=== PATIENT | male | born 1980 | race Caucasian/White ===

== ENCOUNTER 2019-03-06 15:20 | Emergency (ER) | payer BC, OTHER ==
[2019-03-06] MEDS ORDERED: Sodium Chloride 0.9% 10 ML Syringe FLUSH PRN (15:36)
[2019-03-06] MEDS ORDERED: Sodium Chloride 0.9% 1,000 ML IV ONE ×2 (15:39→16:41)
[2019-03-06] MEDS ORDERED: Ondansetron 4 MG/2 ML SDV IVPUSH ONE (15:39)
[2019-03-06] MEDS ORDERED: Iopamidol 612 MG/ML 100 ML Bottle IVPUSH ONE (15:47)
[2019-03-06] MEDS ORDERED: Piperacillin/Tazobactam 3.375 GM in Sodium Chloride 0.9% 100 ML IV ONE (15:59)
[2019-03-06 16:13] LABS: CHLORIDE,CL 105 mmol/L (98-107); SODIUM,NA 143 mmol/L (136-145)
[2019-03-06 16:17] LABS: ANION GAP 23.7 mmol/L (10-20)
--- NOTE | 2019-03-06 16:39 | CT ---
[id number] CT/CT Abdomen Pelvis W IV EXAM: ABDOMEN AND PELVIS CT WITH CONTRAST INDICATION: LOWER ABDOMINAL PAIN. COMPARISON: None. DISCUSSION: There is mild to moderate diffuse small bowel wall thickening, diffuse small bowel mesenteric edema and mucosal hyperenhancement consistent with enteritis. Milder scattered changes are suggested in the colon which is nondilated and appears fluid-filled. Small to moderate free fluid in the abdomen and pelvis. No pneumatosis, bowel dilation, free air or abscess is identified. The IVC is relatively flattened which can be seen in the context of hypovolemia. Possible fatty infiltration of the liver. Small hiatus hernia. The gallbladder, spleen, pancreas, adrenal glands, kidneys and appendix are normal in appearance. No lymphadenopathy. Mild to moderate degenerative disc disease at L5-S1. The osseous structures are otherwise unremarkable. IMPRESSION: 1. Moderate diffuse enteritis and possible mild scattered colitis. There is associated mesenteric edema and small to moderate free fluid. Zachery Christina MD 03/06/19 [id number] Thank you for allowing us to participate in the care of your patient.
[2019-03-06] MEDS ORDERED: fentaNYL 100 MCG/2 ML SDV IVPUSH ONE (16:46)
--- NOTE | 2019-03-06 16:58 | EDM.PDOC ---
ED HPI GENERAL MEDICAL PROBLEM - General Chief Complaint: Fever Stated Complaint: STOMACH PAIN, CHILLS Time Seen by Provider: 03/06/19 15:25 Source of Information: Reports: Patient History Limitations: Reports: No Limitations - History of Present Illness INITIAL COMMENTS - FREE TEXT/NARRATIVE: Pt. presents to ER with complaints of acute onset severe abdominal pain that started this afternoon. 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 He denies any abdominal trauma. Pt. states that he has had several episodes of severe diarrhea and vomiting. He was extremely diaphoretic at onset and continued to be on initial assessment in ER. He denies any chest pain or shortness of breath. He states that he is chilled. He has not been febrile. He denies any recent ill contacts. Pt. states that the pain is diffuse but localizes in the lower abdomen. He states that he has had issues with abdominal pain and hematochezia in the past but states that he has not been evaluated for this. Pt. denies any incident today. 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 Onset: Today Location: Reports: Abdomen Quality: Reports: Ache, Sharp Associated Symptoms: Reports: Diaphoresis, Fever/Chills, Malaise, Nausea/ Vomiting, Weakness Lower Abdominal Pain Score (Numeric/FACES): 8 - Related Data Allergies Allergy/AdvReac Type Severity Reaction Status Date / Time No Known Allergies Allergy Verified 03/06/19 15:35 Home Meds: Home Meds FLUoxetine HCl [Fluoxetine HCl] 40 mg PO DAILY 03/06/19 [History] Lisinopril [Zestril] 10 mg PO DAILY 03/06/19 [History] Metoprolol Succinate [Toprol XL 50mg] 50 mg PO DAILY 03/06/19 [History] clonazePAM [Klonopin] 1 mg PO DAILY 03/06/19 [History] Past Medical History Cardiovascular History: Reports: Hypertension Psychiatric History: Reports: Addiction, Anxiety, Depression Social & Family History - Tobacco Use Smoking Status *Q: Current Every Day Smoker Years of Tobacco use: 10 Packs/Tins Daily: 0.5 - Recreational Drug Use Recreational Drug Use: Yes Drug Use in Last 12 Months: No Recreational Drug Type: Reports: Other (see below) Other Recreational Drug Type: Opioid - on Suboxone treatments ED ROS GENERAL - Review of Systems Review Of Systems: See Below Constitutional: Reports: Fever, Chills, Malaise, Weakness, Fatigue HEENT: Reports: No Symptoms Respiratory: Reports: No Symptoms Cardiovascular: Reports: No Symptoms Endocrine: Reports: No Symptoms GI/Abdominal: Reports: Abdominal Pain, Diarrhea, Nausea, Vomiting : Reports: No Symptoms Musculoskeletal: Reports: No Symptoms Skin: Reports: No Symptoms Neurological: Reports: No Symptoms Psychiatric: Reports: No Symptoms Hematologic/Lymphatic: Reports: No Symptoms Immunologic: Reports: No Symptoms ED EXAM, GENERAL - Physical Exam Exam: See Below Exam Limited By: No Limitations General Appearance: Alert, Anxious, Lethargic, Moderate Distress Throat/Mouth: Normal Inspection, Normal Lips, Normal Teeth, Normal Gums, Normal Oropharynx, Normal Voice, No Airway Compromise Respiratory/Chest: No Respiratory Distress, Lungs Clear, Normal Breath Sounds, No Accessory Muscle Use, Chest Non-Tender Cardiovascular: Normal Peripheral Pulses, Regular Rate, Rhythm, No Edema, No Gallop, No JVD, No Murmur, No Rub GI/Abdominal: Guarding, Rigid, Tender (Male) Exam: Deferred Rectal (Males) Exam: Deferred Back Exam: Normal Inspection, Full Range of Motion Extremities: Normal Inspection, Normal Range of Motion, Non-Tender, No Pedal Edema, Normal Capillary Refill Neurological: Alert, Oriented, CN II-XII Intact, Normal Cognition, Normal Gait, Normal Reflexes, No Motor/Sensory Deficits Psychiatric: Normal Affect, Normal Mood Skin Exam: Cool, Diaphoretic, Pallor Lymphatic: No Adenopathy EKG INTERPRETATION Rhythm: NSR Corbin: Normal P-Wave: Present QRS: Normal ST-T: Normal QT: Normal Course - Vital Signs Last Recorded V/S: Last Vital Signs Temp 35 C L 03/06/19 16:30 Pulse 59 L 03/06/19 16:59 Resp 18 03/06/19 16:59 BP 84/57 L 03/06/19 16:59 Pulse Ox 98 03/06/19 16:59 - Orders/Labs/Meds Orders: Active Orders 24 hr Category Date Time Status EKG 12 Lead [EKG Documentation Completion] [RC] STAT Care 03/06/19 16:20 Active CULTURE BLOOD [BC] Stat Lab 03/06/19 15:40 Received CULTURE BLOOD [BC] Stat Lab 03/06/19 15:40 Received Norepinephrine [Levophed] 4 mg Med 03/06/19 17:00 Active Dextrose 5% in Water 246 ml IV TITRATE Sodium Chloride 0.9% [Normal Saline] 1,000 ml Med 03/06/19 16:41 Active IV ONETIME Sodium Chloride 0.9% [Saline Flush] Med 03/06/19 15:36 Active 10 ml FLUSH ASDIRECTED PRN Blood Culture x2 Reflex Set [OM.PC] Stat Oth 03/06/19 15:40 Ordered Peripheral IV Insertion Adult [OM.PC] Routine Oth 03/06/19 15:36 Ordered Medication Orders Sodium Chloride (Normal Saline) 1,000 mls @ 1,000 mls/hr IV ONETIME ONE Stop: 03/06/19 17:40 Last Admin: 03/06/19 15:35 Dose: 1,000 mls/hr Norepinephrine Bitartrate 4 mg (/ Dextrose/Water) 250 mls @ 7.5 mls/hr IV TITRATE TERI; Protocol Last Admin: 03/06/19 16:40 Dose: 2 mcg/min, 7.5 mls/hr Sodium Chloride (Saline Flush) 10 ml FLUSH ASDIRECTED PRN PRN Reason: Keep Vein Open Labs: Laboratory Tests 03/06/19 03/06/19 03/06/19 Range/Units 15:40 15:40 15:40 WBC 21.1 H* (4.0-10.0) x10^3/uL RBC 7.98 H (4.5-6.0) x10^6/uL Hgb 24.0 H (14.0-18.0) g/dL Hct 64.8 H (40.0-52.0) % MCV 81.2 (78.0-93.0) fL MCH 30.1 (26.0-32.0) pg MCHC 37.0 H (32.0-36.0) g/dL RDW Coeff of Roney 15.3 H (10.0-15.0) % Plt Count 374 (130-400) x10^3/uL Add Manual Diff Yes Neutrophils % (Manual) 72 (50-80) % Band Neutrophils % 2 (0-6) % Lymphocytes % (Manual) 19 L (25-50) % Atypical Lymphs % 2 H (0) % Monocytes % (Manual) 4 (2-11) % Eosinophils % (Manual) 1 (0-4) % Platelet Estimate Adequate PT 12.9 H (10.0-12.8) SEC INR 1.1 L (2.0-3.5) Sodium 143 (136-145) mmol/L Potassium 3.7 (3.5-5.1) mmol/L Chloride 105 (98-107) mmol/L Carbon Dioxide 18 L (21-32) mmol/L Anion Gap 23.7 H (10-20) mmol/L BUN 21 H (7-18) mg/dL Creatinine 1.5 H (0.70-1.30) mg/dL Est Cr Clr Drug Dosing TNP Estimated GFR (MDRD) 52 Glucose 167 H (74-106) mg/dL Lactic Acid (0.4-2.0) mmol/L Calcium 10.7 H (8.5-10.1) mg/dL Corrected Calcium 9.82 (8.5-10.1) mg/dL Phosphorus 5.4 H (2.6-4.7) mg/dL Magnesium 2.0 (1.8-2.4) mg/dL Total Bilirubin 0.5 (0.2-1.0) mg/dL AST 22 (15-37) U/L ALT 27 (16-63) U/L Alkaline Phosphatase 128 H (46-116) U/L C-Reactive Protein 0.5 (<=0.9) mg/dL Total Protein 8.9 H (6.4-8.2) g/dL Albumin 5.1 H (3.4-5.0) g/dL Globulin 3.8 Albumin/Globulin Ratio 1.34 03/06/19 Range/Units 15:40 WBC (4.0-10.0) x10^3/uL RBC (4.5-6.0) x10^6/uL Hgb (14.0-18.0) g/dL Hct (40.0-52.0) % MCV (78.0-93.0) fL MCH (26.0-32.0) pg MCHC (32.0-36.0) g/dL RDW Coeff of Roney (10.0-15.0) % Plt Count (130-400) x10^3/uL Add Manual Diff Neutrophils % (Manual) (50-80) % Band Neutrophils % (0-6) % Lymphocytes % (Manual) (25-50) % Atypical Lymphs % (0) % Monocytes % (Manual) (2-11) % Eosinophils % (Manual) (0-4) % Platelet Estimate PT (10.0-12.8) SEC INR (2.0-3.5) Sodium (136-145) mmol/L Potassium (3.5-5.1) mmol/L Chloride (98-107) mmol/L Carbon Dioxide (21-32) mmol/L Anion Gap (10-20) mmol/L BUN (7-18) mg/dL Creatinine (0.70-1.30) mg/dL Est Cr Clr Drug Dosing Estimated GFR (MDRD) Glucose (74-106) mg/dL Lactic Acid 4.1 H* (0.4-2.0) mmol/L Calcium (8.5-10.1) mg/dL Corrected Calcium (8.5-10.1) mg/dL Phosphorus (2.6-4.7) mg/dL Magnesium (1.8-2.4) mg/dL Total Bilirubin (0.2-1.0) mg/dL AST (15-37) U/L ALT (16-63) U/L Alkaline Phosphatase (46-116) U/L C-Reactive Protein (<=0.9) mg/dL Total Protein (6.4-8.2) g/dL Albumin (3.4-5.0) g/dL Globulin Albumin/Globulin Ratio Meds: Medications Generic Name Dose Route Start Last Admin Trade Name Freq PRN Reason Stop Dose Admin Sodium Chloride 1,000 mls @ 1,000 mls/hr 03/06/19 16:41 03/06/19 15:35 Normal Saline IV 03/06/19 17:40 1,000 mls/hr ONETIME ONE Administration Norepinephrine Bitartrate 4 mg 250 mls @ 7.5 mls/hr 03/06/19 17:00 03/06/19 16:40 / Dextrose/Water IV 2 mcg/min TITRATE TERI 7.5 mls/hr Administration Protocol 2 MCG/MIN Sodium Chloride 10 ml 03/06/19 15:36 Saline Flush FLUSH ASDIRECTED PRN Keep Vein Open Discontinued Medications Generic Name Dose Route Start Last Admin Trade Name Freq PRN Reason Stop Dose Admin Fentanyl 50 mcg 03/06/19 16:46 03/06/19 16:51 Sublimaze IVPUSH 03/06/19 16:47 50 mcg ONETIME ONE Administration Sodium Chloride 1,000 mls @ 1,000 mls/hr 03/06/19 15:39 03/06/19 15:45 Normal Saline IV 03/06/19 16:38 1,000 mls/hr .BOLUS ONE Administration Piperacillin Sod/Tazobactam 100 mls @ 200 mls/hr 03/06/19 15:59 03/06/19 16: 05 Sod 3.375 gm/ Sodium Chloride IV 03/06/19 16:28 200 mls/hr STAT ONE Administration Iopamidol 100 ml 03/06/19 15:47 03/06/19 16:06 Isovue-300 (61%) IVPUSH 03/06/19 15:48 100 ml ONETIME ONE Administration Ondansetron HCl 4 mg 03/06/19 15:39 03/06/19 16:17 Zofran IVPUSH 03/06/19 15:40 4 mg ONETIME ONE Administration - Radiology Interpretation Free Text/Narrative:: Moderate diffues enteritis and colitis. There is small amount of free fluid. No obvious ruptured bowel or spleen. - Re-Assessments/Exams Free Text/Narrative Re-Assessment/Exam: 2 IVs were established. He was still hypotensive despite approx. 1.5 liters of fluid. Pt. started on Levophed. Currently on 6 mcg/min and titrating. Pt. was given zosyn 3.375gm IV. Pt. will be given IV fluids during transport. Levophed will be continued and titrated. I spoke with Dr. Bridges at [facility] in [place] who accepts patient in transfer. Departure - Departure Time of Disposition: 05:09 Disposition: DC/Tfer to Acute Hospital 02 Condition: Critical Clinical Impression: Sepsis associated hypotension, Colitis - Discharge Information Referrals: Sepideh Mckeon, [employer] [Primary Care Provider] - Forms: ED Department Discharge, Interfacility Transfer EMTALA - My Orders Last 24 Hours: My Active Orders 03/06/19 15:36 Sodium Chloride 0.9% [Saline Flush] 10 ml FLUSH ASDIRECTED PRN Peripheral IV Insertion Adult [OM.PC] Routine 03/06/19 15:40 CULTURE BLOOD [BC] Stat CULTURE BLOOD [BC] Stat Blood Culture x2 Reflex Set [OM.PC] Stat 03/06/19 16:20 EKG 12 Lead [EKG Documentation Completion] [RC] STAT 03/06/19 16:41 Sodium Chloride 0.9% [Normal Saline] 1,000 ml IV ONETIME 03/06/19 17:00 Norepinephrine [Levophed] 4 mg Dextrose 5% in Water 246 ml IV TITRATE - Assessment/Plan Last 24 Hours: My Active Orders 03/06/19 15:36 Sodium Chloride 0.9% [Saline Flush] 10 ml FLUSH ASDIRECTED PRN Peripheral IV Insertion Adult [OM.PC] Routine 03/06/19 15:40 CULTURE BLOOD [BC] Stat CULTURE BLOOD [BC] Stat Blood Culture x2 Reflex Set [.PC] Stat 03/06/19 16:20 EKG 12 Lead [EKG Documentation Completion] [RC] STAT 03/06/19 16:41 Sodium Chloride 0.9% [Normal Saline] 1,000 ml IV ONETIME 03/06/19 17:00 Norepinephrine [Levophed] 4 mg Dextrose 5% in Water 246 ml IV TITRATE Plan: Pt. will be evaluated in ER. He will be transported by [facility] ground ambulance. He can receive IV fentanyl for pain control. Titrate levophed to maintain systolic BP of 90.
[2019-03-06] MEDS ORDERED: Norepinephrine 4 MG in Dextrose 5% in Water 246 ML IV SCH ×2 (17:00)
== END 2019-03-06 17:20 | disposition short-term general hospital (02) ==
LOC: VM.ED 15:20
DX: A41.9 Sepsis, unspecified organism (principal); K52.9 Noninfective gastroenteritis and colitis, unspecified; I95.9 Hypotension, unspecified; Z79.899 Other long term (current) drug therapy; F17.210 Nicotine dependence, cigarettes, uncomplicated; F41.9 Anxiety disorder, unspecified; F32.9 Major depressive disorder, single episode, unspecified
CPT/HCPCS: 74177; 80053; 83605; 83735; 84100; 85025; 85610; 86140; 87040; 93005; 96365; 96367; 96375; 99291; 99292; J2405; J2543; J3010; J7030; J7050; J7060; Q9967

== ENCOUNTER 2019-05-18 23:10 | Emergency (ER) | payer MEDICAID, OTHER ==
[2019-05-18] MEDS ORDERED: SUMAtriptan 6 MG/0.5 ML SDV SUBCUT ONE (23:23)
--- NOTE | 2019-05-19 01:25 | EDM.PDOC ---
ED HPI GENERAL MEDICAL PROBLEM - General Chief Complaint: Headache Stated Complaint: Frontal headache Time Seen by Provider: 05/18/19 23:20 Source of Information: Reports: Patient History Limitations: Reports: No Limitations - History of Present Illness INITIAL COMMENTS - FREE TEXT/NARRATIVE: Pt. presents to ER with complaints of migraine headache that started this afternoon. Pt. states that he gets migraines very infrequently and is not on an abortive or preventive medications. Pt. states the headache is frontal in nature. + photophobia and phonophobia. Denies any recent head trauma. No fever or chills. He is nauseated. Pt. denies any neck pain. He states that this is similar to migraines that he has had in the past but states that they usually resolve with ibuprofen and tylenol which is not the case tonight. Denies any facial or extremity numbness, difficulty with speech or ambulation, or other worrisome focal neuro symptoms. 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 Frontal headache Pain Score (Numeric/FACES): 4 - Related Data Allergies Allergy/AdvReac Type Severity Reaction Status Date / Time No Known Allergies Allergy Verified 05/18/19 23:24 Home Meds: Home Meds FLUoxetine HCl [Fluoxetine HCl] 40 mg PO DAILY 03/06/19 [History] Lisinopril [Zestril] 10 mg PO DAILY 03/06/19 [History] Metoprolol Succinate [Toprol XL 50mg] 50 mg PO DAILY 03/06/19 [History] clonazePAM [Klonopin] 1 mg PO DAILY 03/06/19 [History] Past Medical History Cardiovascular History: Reports: Hypertension Neurological History: Reports: Migraines Psychiatric History: Reports: Addiction, Anxiety, Depression ED ROS GENERAL - Review of Systems Review Of Systems: See Below Constitutional: Reports: No Symptoms HEENT: Reports: No Symptoms Respiratory: Reports: No Symptoms Cardiovascular: Reports: No Symptoms Endocrine: Reports: No Symptoms GI/Abdominal: Reports: Nausea : Reports: No Symptoms Musculoskeletal: Reports: No Symptoms. Denies: Neck Pain Skin: Reports: No Symptoms. Denies: Diaphoresis, Pruritis, Rash, Erythema Neurological: Reports: Headache. Denies: Trouble Speaking, Difficulty Walking Psychiatric: Reports: No Symptoms Hematologic/Lymphatic: Reports: No Symptoms Immunologic: Reports: No Symptoms ED EXAM, GENERAL - Physical Exam Exam: See Below Exam Limited By: No Limitations General Appearance: Alert, WD/WN, No Apparent Distress Neurological: Alert, Oriented, CN II-XII Intact, Normal Cognition, Normal Gait, Normal Reflexes, No Motor/Sensory Deficits Psychiatric: Normal Affect, Normal Mood Skin Exam: Warm, Dry, Intact Course - Vital Signs Last Recorded V/S: Last Vital Signs Temp 36.3 C 05/18/19 23:10 Pulse 48 L 05/18/19 23:10 Resp 16 05/18/19 23:10 BP 103/71 05/18/19 23:10 Pulse Ox 100 05/18/19 23:10 - Orders/Labs/Meds Meds: Medications Discontinued Medications Generic Name Dose Route Start Last Admin Trade Name Ana PRN Reason Stop Dose Admin Sumatriptan Succinate 6 mg 05/18/19 23:23 05/18/19 23:30 Imitrex SUBCUT 05/18/19 23:24 6 mg ONETIME ONE Administration Departure - Departure Time of Disposition: 00:20 Disposition: Home, Self-Care 01 Clinical Impression: Migraine - Discharge Information Instructions: Migraine Headache, [id number] Forms: ED Department Discharge Additional Instructions: Home to rest. Drink plenty of fluids. Tylenol and ibuprofen as needed for continued discomfort. Recheck in clinic if not continuing to improve. - Problem List Review Problem List Initiated/Reviewed/Updated: Yes - Assessment/Plan Plan: Pt. had significant improvement in headache approx. 15 min. after receiving imitrex SQ. Near complete resolution of symptoms at discharge. He was offered a script of imitrex but refuses due to the infrequency the the headaches. Advised to return to ER if he has any issues with speech or ambulation, or if symptoms do not continue to improve. Follow-up in clinic as needed.
== END 2019-05-18 23:52 | disposition home or self-care (01) ==
LOC: VM.ED 23:10
DX: G43.909 Migraine, unspecified, not intractable, without status migrainosus (principal); I10 Essential (primary) hypertension; F32.9 Major depressive disorder, single episode, unspecified; F41.9 Anxiety disorder, unspecified; Z79.899 Other long term (current) drug therapy
CPT/HCPCS: 96372; 99283; J3030

== ENCOUNTER 2021-03-31 11:46 | Emergency (ER) | payer MEDICAID, OTHER ==
[2021-03-31] MEDS ORDERED: Promethazine 25 MG/ML SDV IM ONE (12:12)
[2021-03-31] MEDS ORDERED: Dexamethasone 1 MG/ML Oral Drops 4 ML UD Cup PO ONE (12:12)
[2021-03-31] MEDS ORDERED: Ketorolac 30 MG/ML SDV IM ONE (12:12)
[2021-03-31] MEDS ORDERED: diphenhydrAMINE 50 MG/ML SDV IM ONE (12:12)
--- NOTE | 2021-03-31 12:22 | EDM.PDOC ---
ED HPI GENERAL MEDICAL PROBLEM - General Stated Complaint: MIGRAINE Time Seen by Provider: 03/31/21 12:00 Source of Information: Reports: Patient History Limitations: Reports: No Limitations - History of Present Illness INITIAL COMMENTS - FREE TEXT/NARRATIVE: Patient has a history of migraine. He states it usually is temporal but he does not get them frequently. He is maintained on sbuoxone by provider in [place] due to a past narcotic addiction. He states that he got his second Moderna vaccination for Covid on March 28. He has felt mildly ill from this with body aches, headache and feeling unwell. Has not had covid formally. He states that yesterday at the [place] he developed a headache in the occipital area that traveled across the top of his head to the [facility]. He has not drank alcohol in the last 2 days, has been in the heat and dehydrated a bit and has not slept as well as he should. He developed his headache yesterday and it was a 1/10. He did not take anything for it. Today when he awoke it was a 5/10 and he took 1000 mg of tylenol and 400 of motrin. It did not help. States he took his suboxone and his clonazepam. He does sometimes get imitrex injections in the ED for migraines. Sometimes they work and sometimes they don't. Vomited once today, photophobia, not the worst headache of his life. otherthan different location, not different in nature of the headache Onset: Gradual Onset Date: 03/30/21 Location: Reports: Head Quality: Reports: Throbbing Severity: Moderate Improves with: Reports: None Worsens with: Reports: None Associated Symptoms: Reports: Nausea/Vomiting. Denies: Syncope - Related Data Allergies Allergy/AdvReac Type Severity Reaction Status Date / Time No Known Allergies Allergy Verified 05/18/19 23:24 Home Meds: Home Meds FLUoxetine HCl [Fluoxetine HCl] 40 mg PO DAILY 03/06/19 [History] Metoprolol Succinate [Toprol XL 50mg] 50 mg PO DAILY 03/06/19 [History] clonazePAM [Klonopin] 1 mg PO DAILY 03/06/19 [History] lisinopriL [Zestril] 10 mg PO DAILY 03/06/19 [History] Past Medical History Cardiovascular History: Reports: Hypertension Neurological History: Reports: Migraines Psychiatric History: Reports: Addiction, Anxiety, Depression ED ROS GENERAL - Review of Systems Review Of Systems: See Below Constitutional: Reports: Fatigue. Denies: Fever, Chills, Diaphoresis HEENT: Reports: No Symptoms. Denies: Sinus Problem, Throat Swelling Respiratory: Reports: No Symptoms. Denies: Shortness of Breath, Cough Cardiovascular: Reports: No Symptoms. Denies: Chest Pain, Blood Pressure Problem, Dyspnea on Exertion Endocrine: Reports: No Symptoms GI/Abdominal: Reports: Nausea, Vomiting (once) : Reports: No Symptoms Musculoskeletal: Reports: Muscle Pain Skin: Reports: No Symptoms Neurological: Reports: Headache, Other (photophobia). Denies: Paresthesia, Pre- Existing Deficit, Seizure, Syncope, Tremors, Trouble Speaking, Difficulty Walking, Change in Speech, Gait Disturbance Psychiatric: Reports: No Symptoms - Physical Exam Exam: See Below Exam Limited By: No Limitations General Appearance: Alert, WD/WN, Mild Distress Eye Exam: Bilateral Eye: EOMI, Normal Inspection, PERRL Ears: Normal External Exam, Normal Canal, Normal TMs Nose: Normal Inspection, Normal Mucosa, No Blood Throat/Mouth: Normal Inspection, Normal Lips, Normal Teeth, Normal Oropharynx, Normal Voice Head Exam: Atraumatic, Other (no tenderness to palpation of the temporal arteries bilaterally) Neck: Normal Inspection, Supple, Non-Tender, Full Range of Motion Respiratory/Chest: No Respiratory Distress, Lungs Clear, No Accessory Muscle Use, Chest Non-Tender Cardiovascular: Normal Peripheral Pulses, Regular Rate, Rhythm, No Edema, No Murmur GI/Abdominal: Normal Bowel Sounds, Soft, Non-Tender Neuro Exam (Abbreviated): Alert, Oriented, CN II-XII Intact, Normal Cognition, Normal Gait, No Motor/Sensory Deficits, Other (no nystagmus, neg pronator drift, normal rapidly alternating movement, normal finger to nose with eyes closed normal strength in the upper and lower extermities, normal speech) Extremities: Normal Inspection, Normal Range of Motion, No Pedal Edema Psychiatric: Normal Affect, Normal Mood Skin Exam: Warm Course - Orders/Labs/Meds Meds: Medications Discontinued Medications Generic Name Dose Route Start Last Admin Trade Name Freq PRN Reason Stop Dose Admin Dexamethasone 10 mg 03/31/21 12:12 03/31/21 13:04 Dexamethasone 1 Mg/Ml Oral Drops 4 Ml Ud Cup PO 03/31/21 12:13 10 mg ONETIME ONE Administration Diphenhydramine HCl 50 mg 03/31/21 12:12 03/31/21 13:04 Diphenhydramine 50 Mg/Ml Sdv IM 03/31/21 12:13 50 mg ONETIME ONE Administration Ketorolac Tromethamine 30 mg 03/31/21 12:12 03/31/21 12:57 Ketorolac 30 Mg/Ml Sdv IM 03/31/21 12:13 30 mg ONETIME ONE Administration Promethazine HCl 12.5 mg 03/31/21 12:12 03/31/21 13:02 Promethazine 25 Mg/Ml Sdv IM 03/31/21 12:13 12.5 mg ONETIME ONE Administration - Re-Assessments/Exams Free Text/Narrative Re-Assessment/Exam: 03/31/21 12:49 Patient has a history of migraines, Needs to follow up with PCP for this. will give toradol 30mg im, beandryl 50 mg IM, phenergan 12.5mg IM and decadron 10 mg po. did watch for 15 minutes, discharged home Departure - Departure Time of Disposition: 13:15 Disposition: Home, Self-Care 01 Condition: Good Clinical Impression: Migraine - Discharge Information *PRESCRIPTION DRUG MONITORING PROGRAM REVIEWED*: Not Applicable *COPY OF PRESCRIPTION DRUG MONITORING REPORT IN PATIENT ZUNILDA: Not Applicable Instructions: Recurrent Migraine Headache, [id number] Referrals: Sepideh Mckeon NP [Primary Care Provider] - Additional Instructions: It is important to follow up with your provider about your headaches and possiblyreceive a prescription for imitrex or like mediation as they work best at onset of headache. 400 mg of magnesium daily is also helpful to prevent migraines. This can be purchased over the counter. Go home and rest in a dark room, limit sound, computer and cell phone use.
== END 2021-03-31 13:18 | disposition home or self-care (01) ==
LOC: VM.ED 11:46
DX: G43.909 Migraine, unspecified, not intractable, without status migrainosus (principal); I10 Essential (primary) hypertension; Z79.899 Other long term (current) drug therapy
CPT/HCPCS: 96372; 99283; A9270-GY; J1200; J1885; J2550

== ENCOUNTER 2022-12-15 09:09 | Emergency (ER) | payer MEDICAID ==
[2022-12-15] MEDS ORDERED: LORazepam 2 MG/ML SDV IVPUSH ONE (09:17)
[2022-12-15] MEDS ORDERED: Sodium Chloride 0.9% 1,000 ML IV ONE (09:17)
[2022-12-15 09:46] LABS: BARBITURATE SCREEN,URINE NEGATIVE (NEGATIVE); BENZODIAZEPINES SCREEN,URINE NEGATIVE (NEGATIVE); METHAMPHETAMINE SCREEN, URINE NEGATIVE (NEGATIVE); THC SCREEN,URINE 50 NG/ML NEGATIVE (NEGATIVE)
[2022-12-15 09:47] LABS: BUPRENORPHINE SCREEN,URINE POSITIVE (NEGATIVE)
[2022-12-15 10:00] LABS: CHLORIDE,CL 102 mmol/L (98-107); ESTIMATED GFR 86 mL/min (>=60); SODIUM,NA 140 mmol/L (136-145)
== END 2022-12-15 11:10 | disposition home or self-care (01) ==
LOC: VM.ED 09:09
DX: R56.9 Unspecified convulsions (principal); I10 Essential (primary) hypertension; Z87.891 Personal history of nicotine dependence; Z79.899 Other long term (current) drug therapy; Z91.048 Other nonmedicinal substance allergy status
CPT/HCPCS: 36415; 70450; 80053; 80305; 80321; 80323; 80324; 80332; 80335; 80338; 80342; 80345; 80346; 80348; 80349; 80350; 80353; 80354; 80355; 80356; 80357; 80358; 80359; 80360; 80361; 80362; 80365; 80366; 80368; 80369; 80371; 80372; 80373; 81001; 82550; 83735; 83992; 85025; 86140; 93005; 96361; 96374; 99285; J2060; J7030; 93010; 99284; G0480

== ENCOUNTER 2024-09-17 21:50 | Emergency (ER) | payer BC, MEDICAID ==
[2024-09-17] MEDS: Ketorolac 30 MG/ML SDV IM ONE (22:24)
[2024-09-17] MEDS: DEXAMETHASONE PO ONE (22:24)
[2024-09-17] MEDS: diphenhydrAMINE 50 MG/ML SDV IM ONE (22:24)
[2024-09-17] MEDS: Promethazine 25 MG/ML SDV IM ONE (22:25)
== END 2024-09-17 22:48 | disposition home or self-care (01) ==
LOC: VM.ED 21:50
DX: G43.909 Migraine, unspecified, not intractable, without status migrainosus (principal); I10 Essential (primary) hypertension; Z88.8 Allergy status to other drugs, medicaments and biological substances; Z79.899 Other long term (current) drug therapy
CPT/HCPCS: 96372; 99283; J1200; J1885; J2550; J8540